=== PATIENT | male | born 2000 | race African-American/Black ===

== ENCOUNTER 2020-06-05 10:03 | Emergency (ER) | payer MEDICAID, OTHER ==
[~2020-06-05] VITALS: Ht 160 cm; Wt 59.0 kg
[2020-06-05 10:12] VITALS: BP 124/77
[2020-06-05] MEDS ORDERED: MAGNESIUM/ALUMINUM HYDROXIDE/SIMETHICONE 30ML UDC PO ONE (11:45)
[2020-06-05] MEDS ORDERED: DICYCLOMINE 10 MG/5 ML ORAL SYR PO ONE (11:45)
[2020-06-05] MEDS ORDERED: VISCOUS LIDOCAINE 2% 15 ML UDC PO ONE (11:45)
[2020-06-05 12:26] LABS: EOSINOPHILS % 1.3 % (0.0-5.0); HEMATOCRIT. 46.7 % (42.0-52.0); HEMOGLOBIN. 16.2 g/dL (14.0-18.0); LYMPHOCYTES % 28.8 % (20.0-50.0); MEAN CORPUSCULAR VOLUME 89.1 fL (80.0-94.0); MEAN PLATELET VOLUME 8.9 fl (7.4-10.4); MONOCYTES % 7.1 % (2.0-8.0); NEUTROPHILS % 61.8 % (40.0-76.0); PLATELET 184 x1000/uL (130-400); RED BLOOD CELL COUNT 5.24 mill/uL (4.7-6.1); RED CELL DISTRIBUTION WIDTH 12.9 % (11.6-14.6)
[2020-06-05 12:27] LABS: CHLORIDE 105 mEq/L (98-107)
[2020-06-05 13:17] LABS: CLARITY URINE CLOUDY (CLEAR); COLOR URINE DARK YELLOW (YELLOW); KETONES URINE TRACE (NEGATIVE); LEUKOCYTE ESTERASE URINE TRACE (NEGATIVE); NITRITE URINE NEGATIVE (NEGATIVE); OCCULT BLOOD URINE NEGATIVE (NEGATIVE); PROTEIN URINE TRACE (NEGATIVE)
== END 2020-06-05 13:16 | disposition left against medical advice (07) ==
LOC: ER 10:03
DX: R10.9 Unspecified abdominal pain (principal); J45.909 Unspecified asthma, uncomplicated
CPT/HCPCS: 36415; 71045; 80053; 81003; 85025; 93005; 99285

== ENCOUNTER 2022-02-06 15:42 | Emergency (ER) | payer MEDICAID, OTHER ==
[~2022-02-06] VITALS: Ht 167.6 cm; Wt 65.0 kg
[2022-02-06 16:23] VITALS: BP 119/67
== END 2022-02-06 18:53 | disposition left against medical advice (07) ==
LOC: ER 15:42
DX: Z53.21 Procedure and treatment not carried out due to patient leaving prior to being seen by health care provider (principal)